=== PATIENT | female | born 1985 | race Two or more races ===

== ENCOUNTER 2020-11-25 17:36 | Emergency (ER) | payer OTHER ==
[~2020-11-25] VITALS: Ht 160 cm; Wt 99.3 kg
[2020-11-25] MEDS ORDERED: FLUORESCEIN SODIUM 1 MG STRIP OP ONE (17:45)
[2020-11-25] MEDS: TETRACAINE HCL 2% TOP SOLUTION 30 ML BOTTLE TP ONE ×2 (17:45→17:46)
[2020-11-25] MEDS ORDERED: TETRACAINE HCL 0.5% OPHT DROP 2 ML BOTTLE ONE (17:50)
[2020-11-25] MEDS ORDERED: FLUORESCEIN SODIUM 1 MG STRIP ONE (17:51)
[2020-11-25] MEDS ORDERED: SULF15DR6 EACHEYE (18:05)
[2020-11-25] MEDS ORDERED: NAPH15DR EACHEYE (18:05)
[2020-11-26] MEDS ORDERED: TETRACAINE HCL 0.5% OPHT DROP 2 ML BOTTLE OP ONE (11:00)
== END 2020-11-25 18:51 | disposition home or self-care (01) ==
LOC: ER 17:38
DX: Z04.2 Encounter for examination and observation following work accident (principal); H57.13 Ocular pain, bilateral; Z88.2 Allergy status to sulfonamides
CPT/HCPCS: 70480; A4663; J3590